=== PATIENT | female | born 1955 | race Caucasian/White ===

== ENCOUNTER → 2016-04-13 | Outpatient (CLI) | payer OTHER ==
[~2016-04-13] MED LIST: 3N1 COMMODE MC; ASPI-781 PO; BUPR-75 PO; Cyclobenzaprine Hcl PO; DULR PR; GABA300C PO; HYDR12.53 PO; LEVO125T PO; LISI-525 PO; OXYC5CAP17 PO; TRAM50TA2 PO; UDMOM PO; WALK1EAC23 MC
--- NOTE | 2016-04-13 14:33 | RADRPT ---
PROCEDURE: XR Right hip and pelvis. CLINICAL INDICATION: Right hip pain. Pelvic pain. Postop. TECHNIQUE: Three views. Frontal pelvis. Frontal and lateral right hip. COMPARISON: 12/21/2015. FINDINGS: There is no fracture or dislocation. The soft tissues are normal. There is a right hip total arthroplasty which appears satisfactory. There is also a left hip total arthroplasty which appears satisfactory. There is no lytic or blastic lesion. There are degenerative changes of the lower lumbar spine. IMPRESSION: 1. Satisfactory postoperative appearance of both hips. 2. Degenerative changes of the lower lumbar spine. RPTAT: QQ .Nikolai Brown MD, MD Date Time Electronically viewed and signed by .Nikolai Brown MD, MD on 04/13/2016 14:33 .R/
== END | disposition home or self-care (01) ==
LOC: HKI 11:17
PROVIDERS: ATTEND Orthopaedic Surgery
DX: Z47.1 Aftercare following joint replacement surgery (principal); Z96.643 Presence of artificial hip joint, bilateral
CPT/HCPCS: 73502; Z7500; G0463